=== PATIENT | male | born 1990 | race Caucasian/White ===

== ENCOUNTER 2024-04-03 06:48 | Emergency (ER) | payer OTHER, SELFPAY ==
[2024-04-03 06:57] VITALS: BP 138/90; PULSE 88; RESP 20; TEMP 34.9; O2SAT 97; BMI 42.7
--- NOTE | 2024-04-03 07:17 | ED.GENADULT ---
HPI - General Adult General Chief complaint: Laceration/Wound Stated complaint: Finger laceration Time Seen by Provider: 04/03/24 07:17 History of Present Illness HPI narrative: Patient c/o left 2nd finger injury at 0615 today. Patient was using a wire wheel at work, a type of spinning/ cleaning tool and his finger got caught. Patient has abrasion to finger. Bleeding controlled. Wound washed and anbx ointment applied prior to arrival. Tetanus 2018 33-year-old man presenting to the emergency department following an injury at work where he caught his left 2nd finger at work and ultimately a was shaved on the palmar surface by a wire wheel. He has managed to control bleeding. Noted that it was particularly dark in 1 area and worried that he had gone concerningly deep. Has not had a loss of function. There is some poor sensation around the wound. DTaP current. Does have a history of diabetes. Is right-hand dominant. Functions fairly ambidextrously at work. Related Data Home Medications ?Medication ?Instructions ?Recorded ?Confirmed albuterol sulfate 90 mcg/actuation 2 inh inhalation Q6H PRN 04/03/24 04/03/24 aerosol inhaler atorvastatin 10 mg tablet 10 mg PO DAILY 04/03/24 04/03/24 escitalopram oxalate 10 mg tablet 10 mg PO DAILY 04/03/24 04/03/24 losartan 50 mg tablet 50 mg PO DAILY 04/03/24 04/03/24 metformin 500 mg tablet,extended 1,000 mg PO BID 04/03/24 04/03/24 release 24 hr omeprazole 20 mg capsule,delayed 20 mg PO DAILY 04/03/24 04/03/24 release semaglutide 0.25 mg or 0.5 mg (2 mg subcut 04/03/24 mg/3 mL) subcutaneous pen injector (Ozempic) sildenafil 100 mg tablet (Viagra) 100 mg PO DAILY PRN 04/03/24 04/03/24 Allergies Allergy/AdvReac Type Severity Reaction Status Date / Time No Known Drug Allergies Allergy Verified 04/03/24 07:00 Review of Systems Status of ROS: Reports: 6 or more systems reviewed and unremarkable except as noted in History and below [facility] Medical History Primary hypertension ?I10 - Essential (primary) hypertension (ICD-10) Obstructive sleep apnea of adult ?G47.33 - Obstructive sleep apnea (adult) (pediatric) (ICD-10) Morbid obesity ?E66.01 - Morbid (severe) obesity due to excess calories (ICD-10) Mild persistent asthma ?J45.30 - Mild persistent asthma, uncomplicated (ICD-10) Type 2 diabetes mellitus with hyperglycemia ?E11.65 - Type 2 diabetes mellitus with hyperglycemia (ICD-10) GERD (gastroesophageal reflux disease) ?K21.9 - Gastro-esophageal reflux disease without esophagitis (ICD-10) Major depressive disorder, single episode, moderate ?F32.1 - Major depressive disorder, single episode, moderate (ICD-10) Surgical History History of tonsillectomy and adenoidectomy ?Z90.89 - Acquired absence of other organs (ICD-10) Exam Narrative: Exam Narrative: Pleasant. NAD. Lightly or a gauze over up turned left index finger. There is some bunched up residual skin on the distal palmar surface of the finger. Deep intradermal abrasion that extends from just proximal to the tip of the finger to mid middle phalanx. She bleeds easily when manipulated. There is a 3/4 cm darkened [place] at the volar surface of the distal interphalangeal joint. Otherwise I do not appreciate any debris. Good strength to resisted flexion extension of the finger. Const: Vital Signs, click to edit/add: Vital Signs - 24 hr 04/03/24 06:57 Temperature 94.8 F L Pulse Rate [Left P ulse Oximeter] 88 Respiratory Rate 20 Blood Pressure [Ri ght Forearm] 138/90 H Pulse Oximetry 97 Oxygen Delivery Me thod Room Air Documenting provider has reviewed patient's vital signs: yes Course Vital Signs Vital signs: Initial Vital Signs Temperature 94.8 F L 04/03/24 06:57 Temperature Source Temporal Artery Scan 04/03/24 06:57 Pulse Rate 88 04/03/24 06:57 Respiratory Rate 20 04/03/24 06:57 Blood Pressure 138/90 H 04/03/24 06:57 Blood Pressure Mean 106 H 04/03/24 06:57 Blood Pressure Position Sitting 04/03/24 06:57 Pulse Oximetry 97 04/03/24 06:57 Oxygen Delivery Method Room Air 04/03/24 06:57 Vital Signs Temperature 94.8 F L 04/03/24 06:57 Pulse Rate 88 04/03/24 06:57 Respiratory Rate 20 04/03/24 06:57 Blood Pressure 138/90 H 04/03/24 06:57 Pulse Oximetry 97 04/03/24 06:57 Oxygen Delivery Method Room Air 04/03/24 06:57 Temperature 94.8 F L 04/03/24 06:57 Pulse Rate 88 04/03/24 06:57 Respiratory Rate 20 04/03/24 06:57 Blood Pressure 138/90 H 04/03/24 06:57 Pulse Oximetry 97 04/03/24 06:57 Oxygen Delivery Method Room Air 04/03/24 06:57 Medical Decision Making MDM Narrative Medical decision making narrative: I think some scrubbing of this would be a good idea and will need to being somewhat aggressive so would anesthetize. I do not think that a bony injury has occurred. It does not look as though he has entered the subcutaneous tissue. Think this might be a burn at the D IP joint more than grit. Returned to anesthetize his finger in digital block with bupivacaine. Prior to this had assessed the wound and noting some Tammie wound numbness. Has sensation intact at the distal finger. The bupivacaine were provided partial anesthesia. Injected across the volar surface a little more distal with lidocaine which appears to have provided total anesthesia. Had been soaking in Hibiclens and water solution. A further scrubbed this with Shur-Clens equivalent solution. No foreign bodies were removed but the size of this suspected burn area diminished somewhat. Dressed with bacitracin and Band-Aid and gauze wrap. The setting of diabetes and finger injury think would be prudent to initiate prophylactic antibiotics. We prescribing cephalexin for 5 days. Also getting an opinion from the wound clinic about healing, dressings. See patient discharge plan for further discussion Discharge Plan Discharge Clinical Impression: Abrasion of finger Patient Disposition: Home w/ Parent or Adult Condition: Stable Additional Instructions: Ibuprofen, acetaminophen, elevation for comfort. As antibiotic prophylaxis am prescribing cephalexin from [facility] for 5 days. We will try to get a wound clinic appointment for you for further recommendations. Change dressing daily using antibiotic ointment at least for this week. You will be receiving a call from the [facility] to schedule your appointment. If you haven't heard from them by 04/07, please call [phone]. Prescriptions: No Action losartan 50 mg tablet 50 mg PO DAILY atorvastatin 10 mg tablet 10 mg PO DAILY metformin 500 mg tablet extended release 24 hr 1,000 mg PO BID escitalopram oxalate 10 mg tablet 10 mg PO DAILY Ozempic 0.25 mg or 0.5 mg (2 mg/3 mL) pen injector SUBCUT Patient Comments: PLEASE SEE ATTACHED FOR DETAILED DIRECTIONS omeprazole 20 mg capsule,delayed release(DR/EC) 20 mg PO DAILY sildenafil [Viagra] 100 mg tablet 100 mg PO DAILY PRN Rx Instructions: administer 30 minutes to 4 hours before activity albuterol sulfate 90 mcg/actuation HFA aerosol inhaler 2 inh inhalation Q6H PRN Follow Up/Referrals: Provider,Not a Local [Primary Care Provider] - Stand Alone Forms: [employer] Info Instructions
--- OUTSIDE RECORDS SUMMARY | 2024-04-03 08:15 | XMS_ITS | Clinical Summary ---
Author Organization [employer] Address [place], [place] [address] Care Team Providers Care Subject Scientific Research Name Role Phone Jose Vasquez MD Primary Care Provider + Allergies No known active allergies Medications ALBUTEROL INHL Inhale 2 Puffs by mouth 4 times daily if needed. Active OMEPRAZOLE ORAL Take by mouth. Active atorvastatin (LIPITOR) 10 mg tablet Take 1 Tablet by mouth once daily. 3 Active losartan (COZAAR) 50 mg tablet Take 1 Tablet by mouth once daily. 3 Active metFORMIN (GLUCOPHAGE XR) 500 mg Extended-Releas e tablet TAKE 2 TABLETS BY MOUTH EVERYDAY WITH BREAKFAST 4 Active sildenafil citrate (VIAGRA) 100 mg tablet TAKE 1 TABLET BY MOUTH EVERY DAY NEEDED FOR ERECTILE DYSFUNCTION Active escitalopram oxalate (LEXAPRO) 10 mg tablet Take 10 mg by mouth. 4 Active Active Problems Problem Noted Date Diagnosed Date Major depressive disorder, single episode, moder ate 09/27/2023 Gastroesophageal reflux disease 04/23/2022 Type 2 diabetes mellitus with hyperglycemia 03/27 Mild persistent asthma 12/29/2019 Morbid obesity 02/27/2019 Obstructive sleep apnea syndrome in adult 2018 Primary hypertension 12/22/2018 Immunizations Name Administration Dates Next Due Hepatitis B, Unspecified 06/26/2002,05/22/2002 Influenza Virus, Unspecified 01/25/2018,03/05/20 08 Influenza, IIV3 (Age >=3 years) 02/02/2011 Influenza, IIV4 (=>6mos) MDV 01/17/2019 Influenza, Injectable, Mdck, Quadrivalent, W/preservative 01/25/2018 Influenza,CCIIV4 PRESERV FREE 02/05/2017 MMR 05/22/2002 Td, Preservative Free (age >= 7 Years) 3,05/22/2002 Tdap 01/27/2019 Social History Tobacco Use Types Packs/Day Years Used Date Smoking Tobacco: Never Tobacco Cessation:Counseling Given: Yes Alcohol Use Standard Drinks/Week Comments Yes 0 (1 standard drink = 0.6 oz pur e alcohol) rare Social Connections Answer Date Recorded Frequency of Communication with Friends and Fami ly Not on file 11/30/2023 Sex and Gender Information Value Date Recorded Sex Assigned at Not on file Legal Sex Male 5:48 AM [employer] Gender Identity Not on file Sexual Orientation Not on file Obstetrics History Last Filed Vital Signs Vital Sign Reading Time Taken Comments Blood Pressure 160/60 11/30/2023 1:47 PM CDT Pulse 94 11/30/2023 1:47 PM CDT Temperature 36.6 C (97.8 F) 11/27/2023 6:05 PM CDT Respiratory Rate 18 11/27/2023 6:05 PM CDT Oxygen Saturation 98% 11/30/2023 1:47 PM CDT Inhaled Oxygen Concentration - - Weight 154.9 kg (341 lb 8 oz) 11/30/2023 1:47 P M CDT Height 182.9 cm (6') 11/30/2023 1:47 PM CDT Body Mass Index 46.32 11/30/2023 1:47 PM CDT Plan of Treatment Health Maintenance Due Date Last Done Comments Pneumococcal series for age 6-64 (1 of 2 - PCV) 11/14/1995 Depression screening for age 12+ 2001 Hepatitis B series for Diabe charlene (3 of 3 - 3-dose series) 09/11/2002 06/26/2002, 05/22/2002 HIV for age 15-65 2004 Hepatitis C screening for ag e 18-79 11/14/2007 COVID-19 vaccine series ( - season) 2023 04/28/2021, 09/06/2020 Influenza for age 9-49 12/26/2023 9, 01/25/2018, 01/25/2018, Additional history exists BMI (ht and wt on same day) for age 18+ 11/29/2024 11/30/2023, 05/30/2015 Tetanus booster 01/27/2029 01/27/2019, 06/0 05/2002, 05/22/2002 Tdap Completed 01/27/2019 Medical Devices Implanted Type Area Wheat Buyer Device Identifier Shelf Expiration Date Model / Serial / Lot Mesh Ventral 6x8in Ventralightst W/Echo Ps - [id number] Implanted:Qty: 1 on 07/08/2015 by Chucky Stearns MD at [facility] N/A: Abdomen [employer] 09/20/2016 [id number] / / [id number] Insurance [facility] NON-NM-ITS Advance Directives * Full Code (Latest Code Status on File) Date Activated Date Inactivated Comments 07/08/2015 6:00 AM 07/08/2015 3:18 PM Care Teams Subject Scientific Research Relationship Specialty Start Date End Date Jose Vasquez MD [address] [place] [address] PCP - General Family Practice 03/31/22
== END 2024-04-03 10:23 | disposition home or self-care (01) ==
PROVIDERS: Emergency Provider Family Medicine
DX: S60.411A Abrasion of left index finger, initial encounter (principal); W26.9XXA Contact with unspecified sharp object(s), initial encounter
CPT/HCPCS: 64450; 99283; 99284

== ENCOUNTER 2024-04-07 08:44 | Outpatient (CLI) | payer OTHER, SELFPAY | END 2024-04-07 08:45 | disposition home or self-care (01) | PROVIDERS: Visit Provider Nurse Practitioner Family | DX: S60.411A Abrasion of left index finger, initial encounter (principal); W29.8XXA Contact with other powered hand tools and household machinery, initial encounter; Y99.0 Civilian activity done for income or pay; E11.9 Type 2 diabetes mellitus without complications; Z79.4 Long term (current) use of insulin; Z79.84 Long term (current) use of oral hypoglycemic drugs | CPT/HCPCS: 11042; G0463 ==

== ENCOUNTER 2024-04-13 07:52 | Outpatient (CLI) | payer OTHER, SELFPAY | END 2024-04-13 07:53 | disposition home or self-care (01) | LOC: WOUND 07:52 | PROVIDERS: Visit Provider Nurse Practitioner Family | DX: S60.411A Abrasion of left index finger, initial encounter (principal); W29.8XXA Contact with other powered hand tools and household machinery, initial encounter; Y99.0 Civilian activity done for income or pay | CPT/HCPCS: G0463 ==

== ENCOUNTER 2024-04-21 14:03 | Outpatient (CLI) | payer OTHER, SELFPAY | END 2024-04-21 14:04 | disposition home or self-care (01) | LOC: WOUND 14:03 | PROVIDERS: Visit Provider Nurse Practitioner Family | DX: S60.411A Abrasion of left index finger, initial encounter (principal); W29.8XXA Contact with other powered hand tools and household machinery, initial encounter; Y99.0 Civilian activity done for income or pay | CPT/HCPCS: G0463 ==

== ENCOUNTER 2024-04-27 08:18 | Outpatient (CLI) | payer OTHER, SELFPAY | END 2024-04-27 08:19 | disposition home or self-care (01) | LOC: WOUND 08:19 | PROVIDERS: Visit Provider Nurse Practitioner Family | DX: S60.411D Abrasion of left index finger, subsequent encounter (principal); W29.8XXD Contact with other powered hand tools and household machinery, subsequent encounter; Y99.0 Civilian activity done for income or pay | CPT/HCPCS: G0463 ==